=== PATIENT | male | born 2000 | race Caucasian/White ===

== ENCOUNTER 2018-02-10 15:21 | Emergency (ER) | payer BC ==
[~2018-02-10] VITALS: Ht 172.7 cm; Wt 78.0 kg
[2018-02-10] MEDS ORDERED: FLUORESCEIN 1MG EYE STRIP. ONE (15:35)
[2018-02-10] MEDS ORDERED: TETRACAINE 0.5% OPHTH SOLUTION 4ML BOTTLE. ONE (15:35)
[2018-02-10 15:39] VITALS: BP 128/50
[2018-02-10] MEDS ORDERED: FLUORESCEIN 1MG EYE STRIP. OD ONE (15:45)
[2018-02-10] MEDS ORDERED: TETRACAINE 0.5% OPHTH SOLUTION 4ML BOTTLE. OD ONE (15:45)
[2018-02-10] MEDS ORDERED: OFLO5DRO RIGHTEYE (15:48)
--- NOTE | 2018-02-10 15:49 | PHYS DOC ---
Past History Past Medical History: No Pertinent History Smoking: Non-smoker Alcohol Use: None Drug Use: None Adult General Chief Complaint Chief Complaint: EYE PROBLEMS HPI HPI 17-year-old male patient states he had recent URI symptoms and for the last 3 days had right eye discharge and erythema and feeling foreign body sensation without fever and chills, nausea and vomiting, headache and blurred vision. Patient states he feels getting the same problem in left eye. She states he has small rash in medial side of right eye without itching or pain. Patient was seen at urgent care today and was sent to ER for evaluation of corner abrasion. Review of Systems Review of Systems Constitutional: Denies fever or chills [] Eyes: Denies change in visual acuity, or eye pain [, reports erythema] HENT: Denies nasal congestion or sore throat [] Respiratory: Denies cough or shortness of breath [] Cardiovascular: No additional information not addressed in HPI [] GI: Denies abdominal pain, nausea, vomiting, bloody stools or diarrhea [] : Denies dysuria or hematuria [] Musculoskeletal: Denies back pain or joint pain [] Integument: Denies rash or skin lesions [] Neurologic: Denies headache, focal weakness or sensory changes [] Endocrine: Denies polyuria or polydipsia [] All other systems were reviewed and found to be within normal limits, except as documented in this note. Current Medications Current Medications Current Medications Medications (Trade) Dose Ordered Sig/Nancy Start Time Stop Time Status Last Admin Dose Admin Fluorescein Sodium (Ful-Ignacia 1mg) 1 strip 1X ONCE 02/10/18 15:45 02/10/18 15:46 UNV Tetracaine HCl (Tetracaine) 1 drop 1X ONCE 02/10/18 15:45 02/10/18 15:46 UNV Physical Exam Physical Exam Constitutional: Well developed, well nourished, no acute distress, non-toxic appearance. [] HENT: Normocephalic, atraumatic Eyes: PERRLA, EOMI, conjunctiva and erythema and injection in both eye morning and right, no fluorescein uptake, small rash in medial side of nose and right side without sign of infection or discharge Neck: Normal range of motion, no tenderness, supple, no stridor. [] Cardiovascular:Heart rate regular rhythm, no murmur [] Lungs & Thorax: Bilateral breath sounds clear to auscultation [] Neurologic: Alert and oriented X 3, normal motor function, normal sensory function, no focal deficits noted. [] Psychologic: Affect normal, judgement normal, mood normal. [] Current Patient Data Vital Signs Vital Signs Date Time Temp Pulse Resp B/P (MAP) Pulse Ox O2 Delivery O2 Flow Rate FiO2 02/10/18 15:39 97.9 69 20 95 Room Air EKG EKG [] Radiology/Procedures Radiology/Procedures [] Course & Med Decision Making Course & Med Decision Making discharge: I've spoken with the patient and/or caregivers. I've explained the patient's condition, diagnosis and treatment plan based on information available to me at this time. I've answered the patient's and/or caregivers questions and addressed any concerns. The patient and/or caregivers have a good understanding the patient's diagnosis, condition and treatment plan as can be expected at this point. Vital signs have been stabilized. The patient's condition is stable for discharge from the emergency department. The patient will pursue further outpatient evaluation with her primary care provider or other designated consulting physician as outlined in the discharge instructions. Patient and/or caregivers are agreeable to this plan of care and follow-up instructions have been explained in detail. The patient and/or caregivers have received these instructions in written format and expressed understanding of these discharge instructions. The patient and her caregivers are aware that if any significant change in condition or worsening of symptoms should prompt him to immediately return to this of the closest emergency department. If an emergent department is not readily available I would encourage him to call 911. [facility]ason Disclaimer Dragon Disclaimer This electronic medical record was generated, in whole or in part, using a voice recognition dictation system. Departure Departure: Impression: Primary Impression: Acute conjunctivitis, right eye Disposition: HOME, SELF-CARE (At 1545) Condition: STABLE Referrals: JENNIFER LEE MD (PCP) Patient Instructions: Bacterial Conjunctivitis Additional Instructions: Do not rub your eyes Follow-up with eye doctor if not getting better in 2 or 3 days Scripts Ofloxacin (OCUFLOX) 5 Ml Drops 2 DROP RIGHTEYE Q4HRS for 5 Days, #1 BOTTLE Prov: JESSICA REY MD 02/10/18 JESSICA REY MD Feb 10, 2018 15:49
== END 2018-02-10 15:34 | disposition home or self-care (01) ==
LOC: ER 15:21
DX: H10.31 Unspecified acute conjunctivitis, right eye (principal)
CPT/HCPCS: 99283